=== PATIENT | female | born 1965 | race Caucasian/White ===

== ENCOUNTER 2018-10-07 10:11 | Emergency (ER) | payer OTHER ==
[~2018-10-07] VITALS: Ht 160 cm; Wt 75.0 kg
[2018-10-07 10:47] VITALS: Ht 160 cm; Wt 75.0 kg
[2018-10-07] MEDS ORDERED: PRED20TA PO (12:46)
--- NOTE | 2018-10-07 12:54 | ERD ---
ER Documentation Chief Complaint Chief Complaint cough x1 week HPI This is a 53-year-old female that presents to the emergency room with complaint of difficulty breathing since July. States she has been to her primary care doctor 2 times first time was prescribed an inhaler second time onto Reva cast. She states her primary care doctor said she needed to come to the emergency room because she still has a cough denies fevers, reports having increased phlegm in the morning. She is tired with ambulating. Does not smoke. Medical history includes hypothyroid and cholesterolemia. Patient states she had similar symptoms when she was in her 30s. Patient without respiratory distress during time of assessment, respirations equal and unlabored. Translation services utilized for evaluation. ROS All systems reviewed and are negative except as per history of present illness. Medications Home Meds Active Scripts Azithromycin* (Zithromax*) 250 Mg Tablet, 250 MG PO .ZPACK DIRECTED, #6 TAB TAKE 500 MG (2 TABS) THE FIRST DAY THEN 250 MG (1 TAB) DAYS 2-5 Prov:SHO MCCLAIN NP 10/07/18 Inhaler, Assist Devices (E-Z SPACER) 1 Each Spacer, EACH MC, #1 Prov:SHO MCCLAIN NP 10/07/18 Budesonide-Formoterol Fumarate* (Symbicort*) 80-4.5 Inha, 2 PUFFS INHALATION BID for 30 Days, #1 EACH Prov:SHO MCCLAIN NP 10/07/18 Albuterol Sulfate* (Proair HFA*) 8.5 Gm Hfa.aer.ad, 2 PUFF INH Q4 for wheezing, #1 INHALER Prov:SHO MCCLAIN NP 10/07/18 Prednisone* (Prednisone*) 20 Mg Tab, 20 MG PO DAILY for asthma for 4 Days, TAB Prov:SHO MCLCAIN NP 10/07/18 Allergies Allergies: Coded Allergies: No Known Allergy (Unverified , 03/11/12) PMhx/Soc History of Surgery: No Anesthesia Reaction: No Hx Neurological Disorder: No Hx Respiratory Disorders: No Hx Cardiac Disorders: Yes (HIGH CHOLESTEROL ) Hx Psychiatric Problems: No Hx Miscellaneous Medical Probl: No (DENIES SURGERIES) Hx Alcohol Use: No Hx Substance Use: No Hx Tobacco Use: No Physical Exam Vitals Vital Signs Date Temp Pulse Resp B/P (MAP) Pulse Ox O2 O2 Flow FiO2 Time Delivery Rate 10/07/18 97.8 90 17 130/70 94 Room Air 15:15 (90) 10/07/18 98.4 98 20 94 Room Air 15:01 10/07/18 79 18 95 21 14:01 10/07/18 86 18 94 21 12:53 10/07/18 99.1 86 18 163/77 94 10:47 (105) Physical Exam Const: No acute distress Head: Atraumatic Eyes: Normal Conjunctiva ENT: Normal External Ears, Nose and Mouth. Neck: Full range of motion. No meningismus. Resp: Left sided inspiratory wheezing and decreased breath sounds, right-sided lung olivo clear. She without rhonchi or rales. Cardio: Regular rate and rhythm, no murmurs Abd: Soft, non tender, non distended. Normal bowel sounds Skin: No petechiae or rashes Back: No midline or flank tenderness Ext: No cyanosis, or edema Neur: Awake and alert Psych: Normal Mood and Affect Results 24 hrs Current Medications Medications Dose Sig/Alex Start Time Status Last (Trade) Ordered Route PRN Stop Time Admin Dose Reason Admin Albuterol/ 3 ml ONCE STAT 10/07/18 DC 10/07/18 Ipratropium HHN 12:39 14:01 (Duoneb) 10/07/18 12:44 Prednisone 40 mg ONCE ONCE 10/07/18 DC 10/07/18 (Prednisone) PO 13:00 12:48 10/07/18 13:01 Albuterol/ 3 ml ONCE STAT 10/07/18 DC 10/07/18 Ipratropium HHN 13:42 14:01 (Duoneb) 10/07/18 13:44 Diagnostic findings PROCEDURE: XR Chest. CLINICAL INDICATION: Pulmonary nodule TECHNIQUE: Frontal chest x-ray was obtained. COMPARISON: Chest x-ray earlier same date FINDINGS: The heart is not enlarged. Mediastinum is not widened. No hilar masses seen. Lungs are clear of any infiltrates. There is no effusion or pneumothorax. There is an 8 mm sclerotic density within the posterior left ninth rib unchanged. IMPRESSION: No evidence for active cardiopulmonary disease. No lung mass or nodule. No further workup required. Bone island posterior left ninth rib. .Yoshi Cantor MD, MD Date Time Electronically viewed and signed by .Yoshi Cantor MD, on 10/07/2018 14:45 PROCEDURE: XR Chest PA and Lateral CLINICAL INDICATION: Cough TECHNIQUE: PA and Lateral views of the chest were obtained. COMPARISON: None. FINDINGS: Cardiovascular: The cardiovascular silhouette appears unremarkable. Lung Olivo: 87.8 mm nodular density projects to the left lung base and cardiac apex but is not clearly triangulated in the lateral projection. The lung olivo are otherwise clear. Pleural Spaces: No pneumothorax is identified and no effusion is evident. Osseous Structures: There is a mild dextroscoliotic curve to the inferior thoracic spine. Soft Tissues: The soft tissues appear generous. IMPRESSION: 1. A 7.8 mm nodular density projects to the cardiac apex and left lung base seen only on the PA view and not triangulated in the lateral projection. A pulmonary nodule cannot be excluded. A PA chest with nipple markers is recommended to further evaluate. 2. The cardiovascular silhouette appears unremarkable. 3. Mild levoscoliotic curve to the inferior thoracic spine. Physician Amilcar Date Time Electronically viewed and signed by Physician Amilcar on 10/07/2018 13:29 Procedures/MDM This is a 53-year-old female who presents with complaint of difficulty breathing since July. ED COURSE: The patient was stable throughout ED course. I kept the patient informed of laboratory and diagnostic imaging results throughout the ED course. Patient was reassessed multiple times for improvement. Patient gradually showed improvement in respirations and lung sounds throughout ED course DIAGNOSTIC IMAGING: PROCEDURE: XR Chest. No evidence for active cardiopulmonary disease. No lung mass or nodule. No further workup required. PROCEDURE: XR Chest PA and Lateral IMPRESSION: 1. A 7.8 mm nodular density projects to the cardiac apex and left lung base seen only on the PA view and not triangulated in the lateral projection. A pulmonary nodule cannot be excluded. A PA chest with nipple markers is recommended to further evaluate. 2. The cardiovascular silhouette appears unremarkable. 3. Mild levoscoliotic curve to the inferior thoracic spine. Physician Amilcar Date Time Electronically viewed and signed by Physician Amilcar on 10/07/2018 13:29 PROCEDURES: Patient received 2 breathing treatments during ED course and improved significantly MEDICATIONS GIVEN: Albuterol and prednisone Patient tolerated medication well with no adverse reactions. Patient reported improvement in subjective shortness of breath Patient was evaluated for pneumonia, asthma exacerbation, bronchitis. Wells Criteria 0 for PE. Vital signs stable during ED course. Patient for outpatient treatment. Patient being treated for bronchitis. Patient provided with antibiotics, steroids, rescue albuterol, and chronic asthma controller. Patient instructed to follow-up with her primary car provider. Patient verbalized understanding of s/sx of exacerbation and red flags and when to return to ER. Departure Diagnosis: Primary Impression: Cough Additional Impression: Asthma Condition: Stable Patient Instructions: Asthma Medications, Cough, Chronic, Uncertain Cause, (Adult) Referrals: RM العراقي (PCP) Additional Instructions: Thank you very much for allowing us to participate in your care. Your health and safety is our top priority at [facility]. Call your primary care doctor TOMORROW for an appointment during the next 2-4 days and bring all the information and medications prescribed. Have prescriptions filled and follow precisely the directions on the label. If the symptoms get worse and your provider is unavailable[facility]. SHO MCCLAIN NP Oct 07, 2018 12:54
[2018-10-07] MEDS ORDERED: INHA1SPA53 MC (12:57)
[2018-10-07] MEDS ORDERED: SYMB80120 INHALATION (12:57)
[2018-10-07] MEDS ORDERED: ALBU8.5H8 INH (12:57)
[2018-10-07] MEDS ORDERED: predniSONE 20 MG TAB PO ONE (13:00)
[2018-10-07] MEDS: ALBUTEROL/IPRATROPIUM (NEB) 3 ML AMP HHN STA ×2 (13:19→14:01)
[2018-10-07] MEDS ORDERED: ALBUTEROL/IPRATROPIUM (NEB) 3 ML AMP HHN STA (13:42)
[2018-10-07] MEDS ORDERED: AZIT250T PO (15:04)
[2018-10-07 15:15] VITALS: BP 130/70; PULSE 90; RESP 17
== END 2018-10-07 15:15 | disposition home or self-care (01) ==
LOC: FTE 10:11
DX: J45.901 Unspecified asthma with (acute) exacerbation (principal); E03.9 Hypothyroidism, unspecified
CPT/HCPCS: 71045; 71046; 94640; 94664; J7512; Z7502; Z7610